=== PATIENT | male | born 1955 | race Caucasian/White ===

== ENCOUNTER 2023-11-08 05:00 | Observation (INO) ==
--- NOTE | 2023-10-08 12:04 | PAT Medication Instructions ---
Medication Instructions Date of Service October 08, 2023 Home Medications alfuzosin 10 mg tablet,extended release 24 hr 10 mg PO QAM amlodipine 5 mg tablet 5 mg PO QPM ascorbic acid (vitamin C) 1,000 mg tablet (Vitamin C) 1 g PO QAM aspirin 81 mg tablet,delayed release 81 mg PO QAM celecoxib 200 mg capsule (Celebrex) 200 mg PO QAM cholecalciferol (vitamin D3) 50 mcg (2,000 unit) capsule (Vitamin D3) 4,000 mcg PO QAM coQ10 (ubiquinol) 100 mg capsule 100 mg PO QAM famotidine 20 mg tablet 20 mg PO QAM hfiylgze-rhnconrzet-pd glycn-C 500 mg-400 mg capsule 2 cap PO QAM losartan 100 mg tablet 100 mg PO QPM magnesium 250 mg tablet 250 mg PO QAM csfwydlp-wy-hflzl 300 mcg-K 60 mcg-lycop 600 mcg-lutein 300 mcg tablet (Centrum Silver Men) 1 tab PO QAM omega-3 fatty acids-fish oil 684 mg-1,200 mg capsule,delayed release 1 cap PO QAM rosuvastatin 10 mg tablet 10 mg PO QPM sildenafil 100 mg tablet 50 mg PO DAILY PRN sexual intercourse ASK your surgeon for instructions celecoxib 200 mg capsule (Celebrex) 200 mg PO QAM STOP taking 2 weeks before surgery coQ10 (ubiquinol) 100 mg capsule 100 mg PO QAM klqcdsbp-jappnusdzw-mm glycn-C 500 mg-400 mg capsule 2 cap PO QAM omega-3 fatty acids-fish oil 684 mg-1,200 mg capsule,delayed release 1 cap PO QAM STOP taking 24 hours before surgery sildenafil 100 mg tablet 50 mg PO DAILY PRN sexual intercourse DO NOT take the morning of surgery ascorbic acid (vitamin C) 1,000 mg tablet (Vitamin C) 1 g PO QAM cholecalciferol (vitamin D3) 50 mcg (2,000 unit) capsule (Vitamin D3) 4,000 mcg PO QAM magnesium 250 mg tablet 250 mg PO QAM ttnbsixf-qf-qeacq 300 mcg-K 60 mcg-lycop 600 mcg-lutein 300 mcg tablet (Centrum Silver Men) 1 tab PO QAM Take morning of surgery With a small sip of water, OTHERWISE NOTHING TO EAT OR DRINK AFTER MIDNIGHT: alfuzosin 10 mg tablet,extended release 24 hr 10 mg PO QAM aspirin 81 mg tablet,delayed release 81 mg PO QAM (unless surgeon directed otherwise) famotidine 20 mg tablet 20 mg PO QAM Take evening before surgery amlodipine 5 mg tablet 5 mg PO QPM losartan 100 mg tablet 100 mg PO QPM rosuvastatin 10 mg tablet 10 mg PO QPM Other Notes If you have any questions please call us at [phone] or [phone] or [phone] or [phone]
--- NOTE | 2023-10-13 14:20 | Anesthesiology Consultation ---
Date of Service October 13, 2023 Assessment & Plan (1) Encounter for pre-operative examination: Chart Review Chart Review: Acceptable Risk for Surgery and Patient seen in Pre Admission Testing - Patient not an ideal OPJ candidate due to comorbidities (currently 23 hour obs) Per PAT appt on 10/13/23, no recent illness/disease exposures, illness related symptoms, or recent illness/disease positive tests. Will leave to surgeon's disc retion if preop Covid testing needed Patient seen by vascular surgery 09/24/23= patient presents for six month follow up on carotid stenosis. Patient with moderate bilateral ICA stenosis, stable, asymptomatic. ABIs and segmental pressures are within normal limits. Continue aspirin and statin. Repeat carotid Doppler in 6 months. (Discussed with Dr. Colon- patient can proceed as scheduled since scheduled for JORGE) Teaching & Discussion Pre-Anesthesia Teaching/Discussion Notes: Instructed NPO after midnight before surgery,except medications with 15 cc of water. Medication instructions provided according to the PAT guidelines. History Surgery Operation Date: 11/08/23 09:00 Proposed Procedures p Right Anterior Total Hip Arthroplasty - Domenico Harris DO Height/Weight Height: 5 ft 9 in Weight: 76.657 kg Allergies Allergy/AdvReac Type Severity Reaction Status Date / Time olmesartan [From Benicar] Allergy Intermediate leg cramps Verified 10/08/23 10:47 Medications Home Medications Medication Instructions Recorded Confirmed Last Taken alfuzosin 10 mg tablet,extended 10 mg PO QAM 10/08/23 10/08/23 Unknown release 24 hr amlodipine 5 mg tablet 5 mg PO QPM 10/08/23 10/08/23 Unknown ascorbic acid (vitamin C) 1,000 mg 1 g PO QAM 10/08/23 10/08/23 Unknown tablet (Vitamin C) aspirin 81 mg tablet,delayed 81 mg PO QAM 10/08/23 10/08/23 Unknown release celecoxib 200 mg capsule (Celebrex) 200 mg PO QAM 10/08/23 10/08/23 Unknown cholecalciferol (vitamin D3) 50 4,000 mcg PO QAM 10/08/23 10/08/23 Unknown mcg (2,000 unit) capsule (Vitamin D3) coQ10 (ubiquinol) 100 mg capsule 100 mg PO QAM 10/08/23 10/08/23 Unknown famotidine 20 mg tablet 20 mg PO QAM 10/08/23 10/08/23 Unknown lfjygmou-vyycfirkcy-ew glycn-C 500 2 cap PO QAM 10/08/23 10/08/23 Unknown mg-400 mg capsule losartan 100 mg tablet 100 mg PO QPM 10/08/23 10/08/23 Unknown magnesium 250 mg tablet 250 mg PO QAM 10/08/23 10/08/23 Unknown wazgzfqc-xp-mcevo 300 mcg-K 60 1 tab PO QAM 10/08/23 10/08/23 Unknown mcg-lycop 600 mcg-lutein 300 mcg tablet (Centrum Silver Men) omega-3 fatty acids-fish oil 684 1 cap PO QAM 10/08/23 10/08/23 Unknown mg-1,200 mg capsule,delayed release rosuvastatin 10 mg tablet 10 mg PO QPM 10/08/23 10/08/23 Unknown sildenafil 100 mg tablet 50 mg PO DAILY PRN sexual 10/08/23 10/08/23 Unknown intercourse Past Medical History Medical History (Updated 10/15/23 @ 11:55 by Gita Velasquez PA-C) Arthritis BPH (benign prostatic hyperplasia) History of carotid artery disease Follows with vascular surgery - [facility] - Dr. Hernandez - last seen 09/24/23 50-69% to bilateral ICAs per 09/24/23 carotid doppler Hx of basal cell carcinoma s/p excision from forehead Hyperlipidemia Hypertension Sciatica Spinal stenosis Lumbar Exercise / Class Metabolic Activity II 4-5 Yardwork/Stairs/Walk up hill (one flight of stairs - no chest pain or SOB ) Past Family History Family History Other No family history of adverse response to anesthesia Past Surgical History Surgical History H/O hernia repair inguinal x2 umbilical x1 History of arthroscopy left knee History of back surgery lumbar fusion/laminectomy History of colonoscopy History of tonsillectomy and adenoidectomy History of tooth extraction Hx of basal cell carcinoma excision face area Past Anesthesia History No Hx of Anesthesia Complications and No Family Hx of Anesthesia Complications History of PONV No Hx of PONV and No Hx of Motion Sickness Social History Smoking Status: Former smoker Do You Dip or Chew Tobacco: No Smoking End Date: for short period of time Hx Alcohol Use: Yes Alcohol type: beer and wine alcohol intake frequency: a few times a month substance use type: does not use Review of Systems - Hx of snoring- hx of sleep study - many years ago- no RACIEL at that time Patient denies chest pain, shortness of breath, dyspnea on exertion, reflux, cough, wheezing, palpitations. No hx of seizures, stroke, [place]. No hx of blood clots or blood transfusions Physical Exam Vital Signs VITALS BP 180/92 (usually well controlled (check at home daily- usually 120-130s/70s)- patient called into PAT on 10/14/23- BP in left arm last night was 127/75, and this morning 124/78; BP in right arm last night was 118/70 and this morning was 120/73; patient will continue to monitor and call if BP elevated) P 85 TEMP 97.9 SP02 99% RESP 16 Constitutional no acute distress ENMT Mouth: no TMJ clicking Thyromental Distance: > or= 3.5 Finger Breadths (3.5) Mallampati Class: I Permanent implant to bottom left side tooth Neck + limited neck extension Respiratory normal respiratory effort; no respiratory distress Auscultation: lungs clear to auscultation bilaterally; no wheezes Cardiovascular Rate/Rhythm: regular rate and regular rhythm Heart Sounds: no murmur Vessels: no carotid bruit Musculoskeletal Spine: + pain with cervical ROM (mild) Extremities: extremities normal to inspection Psychiatric Orientation: alert Lab Results Anesthesia Preop Results Results Anesthesia Widget: WBC 6.63 K/ul (4.8-10.8) 10/13/23 Hgb 15.7 g/dl (14.0-18.0) 10/13/23 Hct 47.1 % (42.0-52.0) 10/13/23 Plt 158 K/uL (130-400) 10/13/23 Na 141 mmol/L (136-145) 10/13/23 K 4.6 mmol/L (3.5-5.1) 10/13/23 Cl 105 mmol/L (98-107) 10/13/23 CO2 31 mmol/L (21-32) 10/13/23 BUN 15 mg/dl (6-23) 10/13/23 Creat 0.87 mg/dl (0.6-1.4) 10/13/23 Glucose Level 95 mg/dl (70-99(Fasting)) 10/13/23 PT 10.9 Seconds (9.0-12.0) 10/13/23 PTT 27 Seconds (21-31) 10/13/23 INR 1.0 (0.9-1.1) 10/13/23 Blood Type AB Negative 10/13/23 Antibody Screen NEGATIVE 10/13/23 Testing Electrocardiogram Date: 10/13/23 Findings: + NSR @ (77bpm) Possible left atrial enlargement Chest X-Ray Date: 10/13/23 Findings: + NAD FINDINGS: Mild hyperinflation. Cardiac silhouette is upper limits of normal. No pneumothorax, pleural effusion or overt pulmonary edema. Mild bibasilar densities are likely atelectatic. Partially imaged lumbar spinal fusion hardware. Severe right glenohumeral osteoarthritis. Bones appear grossly intact. Other Testing Carotid Doppler 09/24/2023 = Right ICADoppler velocity criteria suggest 70-99% stenosis, however ratio criteria suggest 50-69% stenosis range. Left ICADoppler criteria suggest 50- 69% stenosis range. Antegrade flow in bilateral vertebral arteries Impression: 50-69% stenosis in bilateral internal carotid arteries. No significant changes noted from previous study from 03/24/2023.
[2023-11-08] MEDS: LR 500ML BOLUS, THEN 15ML/HR IV SCH (06:00)
[2023-11-08] MEDS: dexAMETHasone**PF** 10 MG/ML VIAL IV SCH (06:01)
[2023-11-08] MEDS: ACETAMINOPHEN 500 MG TAB PO SCH ×2 (06:01→13:25)
[2023-11-08] MEDS: LR 60ML/HR IV SCH (06:01)
[2023-11-08] MEDS: FAMOTIDINE 20 MG TAB PO SCH (06:02)
[2023-11-08] MEDS: GABAPENTIN 900 MG DOSE PO SCH (06:02)
[2023-11-08] MEDS ORDERED: BUPIVACAINE 0.5 % 5 MG/1 ML PF 10ML VIAL ONE (06:14)
[2023-11-08] MEDS ORDERED: MIDAZOLAM HCL 1 MG/ML 2ML VIAL ONE (06:29)
[2023-11-08] MEDS ORDERED: fentaNYL citrate PF 100 MCG/2 ML VIAL ONE (06:29)
--- NOTE | 2023-11-08 06:31 | History & Physical Bridge Note ---
Date of Service November 08, 2023 History & Physical Bridge Note I have examined the patient, reviewed the History & Physical and in the interval since the performance of the History & Physical I have noted the following changes of clinical significance: no changes noted
[2023-11-08] MEDS ORDERED: fentaNYL citrate PF 100 MCG/2 ML VIAL IV PRN (06:38)
[2023-11-08] MEDS ORDERED: ONDANSETRON INJ 2 MG/ML 2 ML VIAL IV PRN ×2 (06:38→08:39)
[2023-11-08] MEDS ORDERED: ATROPINE SULFATE 0.1 MG/ML 10ML SYR IV PRN (06:38)
[2023-11-08] MEDS ORDERED: ePHEDrine sulfate 50 MG/ML AMP IV PRN (06:38)
[2023-11-08] MEDS: TRANEXAMIC ACID 1,000 MG **IV Pre-op IV SCH (06:43)
[2023-11-08] MEDS: ceFAZolin 2000MG 2,000 MG/15 ML SYR IV SCH ×2 (06:57→15:52)
[2023-11-08] MEDS ORDERED: ePHEDrine sulfate 50 MG/5 ML SYR ONE (07:21)
[2023-11-08] MEDS ORDERED: PROPOFOL IV EMULSION 10 MG/ML 20 ML VIAL IV ONE ×2 (07:22→08:09)
[2023-11-08] MEDS ORDERED: ONDANSETRON INJ 2 MG/ML 2 ML VIAL ONE (07:22)
[2023-11-08] MEDS: ORTHO JOINT ANESTHETIC ONE (07:33)
[2023-11-08] MEDS ORDERED: PHENYLEPHRINE 100MCG/ML 10ML SYR IV ONE (07:45)
[2023-11-08] MEDS: ROPIV 0.5% 246mg, Ketorolac 30mg, EPINEPHrine 0.5mg in NSS INFIL SCH (08:10)
[2023-11-08] MEDS: TRANEXAMIC ACID 1,000 MG **IV Intra-op IV SCH (08:12)
--- NOTE | 2023-11-08 08:21 | Fluoroscopy Report ---
FL hip RT 1V CLINICAL HISTORY: RIGHT ANTERIOR JORGE TECHNIQUE: 1 views were obtained with the C-arm in the OR with the above procedure. Total fluoroscopy time was 16.0 seconds. Radiation dose was 1.61 mGy. Comparison: Comparison is made to hip radiograph 07/06/2023 FINDINGS/IMPRESSION: Intraoperative images were obtained of right hip arthroplasty. Please correlate with intraoperative fluoroscopy and operative report. ACT 112: Negative or not required by law. Electronically signed by: Charlie Bey M.D. 11/08/2023 8:20 AM
[2023-11-08] MEDS ORDERED: bisacodyL 10 MG SUPP PR PRN (08:39)
[2023-11-08] MEDS ORDERED: METOCLOPRAMIDE HCL INJ 5 MG/ML 2 ML VIAL IV PRN (08:39)
[2023-11-08] MEDS ORDERED: MAGNESIUM HYDROXIDE SUSP 30 ML UDC PO PRN (08:39)
[2023-11-08] MEDS ORDERED: HYDROmorphone INJ 0.5 MG/0.5 ML SYR IV PRN (08:39)
[2023-11-08] MEDS ORDERED: NALOXONE HCL 0.4 MG/1 ML VIAL/CARP IV PRN (08:39)
--- NOTE | 2023-11-08 09:27 | XRay Report ---
AP PELVIS, CROSSTABLE LATERAL RIGHT HIP History: Right total hip arthroplasty. Degenerative arthritis. Postop. FINDINGS: The patient is status post a right total hip arthroplasty. The hardware is intact. No fract ure or dislocation. Skin della are in place. IMPRESSION: Right total hip arthroplasty. No evidence for hardware complication ACT 112: Negative or not required by law. Electronically signed by: Hermelindo Galeana M.D. 11/08/2023 9:26 AM
--- NOTE | 2023-11-08 09:53 | Anesthesiology Progress Note ---
Date of Service November 08, 2023 Anesthesia Post Procedure Vital Signs Vital Signs: Temp Pulse Pulse Resp BP Pulse Ox O2 Del Method 11/08/23 09:35 87 19 149/69 H 100 Nasal Cannula 11/08/23 09:20 85 19 135/87 100 Room Air 11/08/23 09:10 87 12 130/71 96 Room Air 11/08/23 09:00 84 15 126/78 98 Room Air 11/08/23 08:50 86 14 122/82 98 Room Air 11/08/23 08:42 97.0 F L 86 14 131/76 100 Room Air 11/08/23 05:32 97.9 F 95 H 20 167/87 H 98 Room Air O2 Flow Rate 11/08/23 09:35 2 11/08/23 09:20 11/08/23 09:10 11/08/23 09:00 11/08/23 08:50 11/08/23 08:42 11/08/23 05:32 Pain Intensity Right Hip: Pain Intensity: 5 Transfer of Care Handoff Completed per policy Notes Mental Status: alert / awake / arousable and participated in evaluation Patient Amnestic to Procedure: Yes Nausea / Vomiting: adequately controlled Pain: adequately controlled Airway Patency, RR, SpO2: stable & adequate BP & HR: stable & adequate Hydration State: stable & adequate Neuraxial Anesthesia: was administered and sensory block is resolving Anesthetic Complications: no major complications apparent and Pt Satisfied with anesthetic care
[2023-11-08] MEDS: SODIUM CHLORIDE 0.9% 1,000 ML IV SCH (10:35)
[2023-11-08] MEDS: DOCUSATE SODIUM 100 MG CAP PO SCH (11:38)
[2023-11-08] MEDS: MULTIVITAMIN TAB PO SCH (11:38)
--- NOTE | 2023-11-08 13:39 | Operative Report ---
PG Post Operative Report Pre & Post Diagnosis Operation Date: 11/08/23 07:00 Pre-Op Diagnosis: osteoarthritis of right hip Post-Op Diagnosis: osteoarthritis of right hip I identified the patient and participated in the time-out.: Yes Procedure Operation Date: 11/08/23 07:00 Actual Procedures p Right Anterior Total Hip Arthroplasty(Right) - Domenico Harris DO Surgeon Domenico Harris DO Adolescent Counselor Nan Jay PA-C Estimated Blood Loss 150 Findings Consistent with Post-Op Diagnosis Specimens Right humeral head Description of Procedure Implants used I used a ZimmerBiomet total hip arthroplasty system with a size 4 standard offset Avenir Complete stem, a 54 mm G7 cup with a 25mm screw, an E1 polyethylene liner, a 40 mm ceramic head with a +3.5 neck. Jeffery arrived at the hospital for the above procedure. He was seen in the preoperative holding area and the operative extremity was identified and signed. He was given a spinal anesthetic, a preoperative antibiotic, and TXA. He was then taken back to the operating room and laid on the table in the supine position. He was given basic sedation. The operative leg was secured to a Puristst leg positioner. The hip was then prepped and draped in sterile fashion. A timeout was done and the patient and the operative extremity was pr operly identified. An anterior approach was used. Dissection was taken down through the fascia and the tensor muscle belly was retracted laterally and the rectus was retracted medially. The circumflex vessels were identified and ligated. The capsule was then incised and tagged for later repair. The femoral neck was then cut and the femoral head was removed. The acetabulum was exposed. Time was spent doing a complete circumferential labral release. Sequential reaming of the acetabulum up to a size 53 reamer was done. Final reamings were done under fluoroscopy to ensure appropriate version. A Biomet 54 mm G7 cup was then impacted into place. A single 25 mm screw was placed. The E1 polyethylene liner was then snapped into place. Surrounding soft tissues were then injected with 100 cc of an orthopedic pain control cocktail. The proximal femur was then exposed. Sequential broaching up to a size 4 broach was done. Off that broach a size 40 head with a +3.5 neck was trialed. The hip was reduced and fluoroscopic images showed anatomic alignment of the implants in acceptable length. The broach was removed. The final size 4 standard offset Avenir Complete stem was then impacted into place. A ceramic 40 mm head with a +2.5 neck was then impacted onto the stem and the hip was reduced. Final fluoroscopic images showed anatomic alignment of the hip. The capsule was then closed with #1 Vicryl suture. A dilute betadyne lavage was then done for 3 minutes. The joint was then irrigated with normal saline solution. The fascia was closed with #1 PDS suture. Skin was closed with 2-0 Vicryl, della, and a Silverlon dressing. He was then transferred to a hospital bed and taken to the post anesthesia care unit in stable condition. He tolerated the procedure well. Nan Jay PA-C, was present for the entire procedure. He was critical for patient positioning, prepping, draping, retraction exposure, wound closure and application of sterile dressing. I attest to the content of the Intraoperative Record and any orders documented therein. Any exceptions are noted below.
[2023-11-08] MEDS ORDERED: ceFAZolin 2000MG 2,000 MG/15 ML SYR IV SCH (14:45)
[2023-11-08] MEDS: oxyCODONE HCL IR 5 MG TAB (IMMEDIATE RELEASE) PO PRN (15:55)
[2023-11-08] MEDS: SENNA 8.6 MG TAB PO SCH (21:31)
[2023-11-08] MEDS: amLODIPine BESYLATE 5 MG TAB PO ONE (23:55)
[2023-11-08] MEDS: ROSUVASTATIN CALCIUM 10 MG TAB PO SCH (23:56)
[2023-11-08] MEDS: LOSARTAN POTASSIUM 50 MG TAB PO SCH (23:56)
[2023-11-09 06:35] LABS: Basophils # (auto) 0.02 K/uL (0.00-0.20); Basophils % (auto) 0.2 %; Hematocrit (blood only) 39.6 % (42.0-52.0); Hemoglobin 13.5 g/dl (14.0-18.0); Immature Granulocytes # (auto) 0.05 K/uL (0.01-0.20); Immature Granulocytes % (auto) 0.4 %; Lymphocytes # (auto) 1.32 K/uL (1.20-3.40); Lymphocytes % (auto) 11.3 %; Mean Corpuscular Hemoglobin 32.5 pg (25.0-34.0); Mean Corpuscular Hgb Conc 34.1 g/dL (32.0-36.0); Mean Corpuscular Volume 95.4 fL (80.0-100.0); Mean Platelet Volume 9.7 fL (9.4-12.4); Monocytes # (auto) 1.08 K/uL (0.11-0.59); Monocytes % (auto) 9.2 %; Neutrophils # (auto) 9.22 K/uL (1.40-6.50); Neutrophils % (auto) 78.9 %; Platelet Count 152 K/uL (130-400); RDW Coefficient of Variation 12.1 % (11.5-14.5); RDW Standard Deviation 42.6 fL (36.4-46.3); Red Blood Count 4.15 M/uL (4.70-6.10); White Blood Count 11.69 K/ul (4.8-10.8)
--- NOTE | 2023-11-09 06:39 | Orthopedic Progress Note ---
Date of Service November 09, 2023 Assessment & Plan (1) Status post right hip replacement: POD #1 from Right anterior total hip replacement. Doing well. PT/OT today. Discharge home today. He would like [facility] home health. Dvt prophylaxis: aspirin, teds, scd's Follow with Dr. Godfrey office 2 weeks post op Subjective Elba Gil is a 68 y/o patient POD #1 from right anterior JORGE with Dr. Harris. Doing fairly well. Pain controlled. No other complaints. Review of Systems All systems reviewed & are unremarkable except as noted in HPI & below. Physical Exam .Alert and orietned. NAD. VSS Dressing intact to right hip. Slight drainage on the dressing. No calf tenderness. Able to dorsiflex and plantarflex appropriately. NVI. Let well aligned. Results & Data Results & Data Laboratory Results . Diagnostic Findings . PG Care Time/CCT Total # of Minutes Spent Total Time Spent with Patient: Total time spent is greater than 50% in coordination of care (as documented) at patient's floor/unit and/or counseling patient: Coding Level of Care Code 74743 Post Operative Follow-Up Diagnoses Status post right hip replacement Z96.641
[2023-11-09 06:54] LABS: BUN Creatinine Ratio 19.7 (10-20); Creatinine Clr Calc Pharmacy 94.7 ml/min; Est GFR (African American) 107.9 ml/min; Est GFR (Non-African American) 93.1 ml/min; Potassium 4.6 mmol/L (3.5-5.1)
[2023-11-09] MEDS: ASPIRIN 81 MG CHEW PO SCH (07:44)
[2023-11-09] MEDS: dexAMETHasone 10 MG in SYRINGE 0 ML IV SCH (07:44)
[2023-11-09] MEDS: FAMOTIDINE 20 MG TAB PO SCH (08:43)
[2023-11-10] MEDS ORDERED: POLYETHYLENE (MIRALAX) 17 GM PACK PO SCH (12:00)
== END 2023-11-09 10:23 | disposition home or self-care (01) ==
LOC: ASU 05:00 → 3E 05:00
DX: M16.11 Unilateral primary osteoarthritis, right hip; Z79.899 Other long term (current) drug therapy; Z87.891 Personal history of nicotine dependence; Z88.8 Allergy status to other drugs, medicaments and biological substances